=== PATIENT | female | born 1995 | race Hispanic/Latino ===

== ENCOUNTER 2023-09-21 07:59 | Emergency (ER) | payer BC | END 2023-09-21 09:51 | disposition home or self-care (01) | LOC: ERS 07:59 | DX: R06.00 Dyspnea, unspecified (principal); D64.9 Anemia, unspecified; Z55.6 Problems related to health literacy | CPT/HCPCS: 71046 ==

== ENCOUNTER 2024-11-19 11:32 | Emergency (ER) | payer BC ==
[2024-11-19] MEDS ORDERED: Aspirin Chewable 81 MG TAB ONE (12:06)
[2024-11-19 12:08] LABS: #Basophils 0.07 10x3/uL (0.0-0.2); #Eosinophils 0.20 10x3/uL (0.0-0.7); #Monocytes 0.50 10x3/uL (0.11-0.59); #Neutrophils 8.17 10x3/uL (1.40-6.50); %Basophils 0.6 % (0.0-1.0); %Eosinophils 1.7 % (0.0-10.0); %Lymphocytes 22.0 % (21.0-51.0); %Monocytes 4.4 % (0.0-10.0); %Neutrophils 71.1 % (42.0-75.0); Hematocrit 37.9 % (36.0-47.0); Hemoglobin 11.9 g/dL (12.0-16.0); Mean Corpuscular Hemoglobin 27.9 pg (27.0-31.0); Mean Corpuscular Volume 88.8 fL (78.0-98.0); Platelet Count 396 10x3/uL (130-400); Red Blood Cell (RBC) Count 4.27 mill/uL (4.20-5.40); White Blood Cell (WBC) Count 11.49 10x3/uL (4.8-10.8)
[2024-11-19 12:29] LABS: ALT (SGPT) 31 U/L (Less than 34); AST (SGOT) 24 U/L (11-34); Albumin 4.2 g/dL (3.1-4.5); Alkaline Phosphatase 91 U/L (40-110); Anion Gap 11 mmol/L (10-20); BUN (Urea Nitrogen) 10 mg/dL (7.0-18.7); Bilirubin, Total 0.1 mg/dL (0.3-1.2); Calc. Creatinine Clearance 0 mL/min (70-130); Calcium 9.2 mg/dL (7.8-10.44); Carbon Dioxide 26 mmol/L (22-29); Chloride 108 mmol/L (98-107); Globulin 3.3 g/dL (2.4-3.5); Glucose 91 mg/dL (70-105); Potassium 3.5 mmol/L (3.5-5.1); Sodium 141 mmol/L (136-145)
== END 2024-11-19 15:08 | disposition home or self-care (01) ==
LOC: ERS 11:32
DX: R07.2 Precordial pain (principal)
CPT/HCPCS: 71045; 80053; 84484; 85025; 85379; 93005